=== PATIENT | female | born 1975 | race African-American/Black ===

== ENCOUNTER 2025-02-12 12:50 | Emergency (ER) | payer MEDICAID, OTHER ==
[~2025-02-12] VITALS: Ht 182.9 cm; Wt 104.5 kg
[2025-02-12 13:37] LABS: Hematocrit 36.2 % (36.0-46.0); Hemoglobin 11.9 g/dL (12.2-16.2); Mean Corpuscular Hemoglobin 27.5 pg (28.0-32.0); Mean Corpuscular Volume 83.6 fL (80.0-100.0); Nucleated Red Blood Cells % 0.0 %
--- NOTE | 2025-02-12 13:40 | DVH ---
INDICATION: cp TECHNIQUE: Frontal view of the chest. COMPARISON: None FINDINGS: . The heart and mediastinal contours are grossly unremarkable. There is no evidence of pleural disea se. The lungs are clear. The bony structures of the chest are intact without fracture. IMPRESSION: 1. No evidence of acute disease.
[2025-02-12 13:45] LABS: Chloride 106 mmol/L (98-107); Potassium 3.9 mmol/L (3.5-5.1); Sodium 142 mmol/L (136-145)
[2025-02-12 13:46] LABS: Anion Gap 5 (5-15); Carbon Dioxide 31 mmol/L (20-31)
[2025-02-12 13:47] LABS: Calcium 9.5 mg/dL (8.7-10.4)
[2025-02-12 13:51] LABS: BUN/Creatinine Ratio 9.5 (10.0-20.0)
[2025-02-12 13:54] LABS: Blood Urea Nitrogen 6 mg/dL (9-23)
[2025-02-12 13:59] LABS: Glucose 56 mg/dL (74-106)
[2025-02-12 18:10] VITALS: TEMP 97.9; O2SAT 98
--- NOTE | 2025-02-12 18:26 | ECG ---
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
[2025-02-12 18:30] VITALS: BP 140/93; PULSE 62; RESP 18
[2025-02-12] MEDS: MORPHINE SULFATE INJ 2 MG/ml SYRG ONE (18:30)
[2025-02-12] MEDS: ONDANSETRON HCL 4 MG/2 ML VIAL IV ONE (18:30)
[2025-02-12] MEDS: MORPHINE SULFATE 4 MG/ML SYR/VIAL IV ONE (18:31)
--- NOTE | 2025-02-13 11:13 | ED.PDOC ---
HPI Comments 49y F who presents to the ED via EMS for chief complaint of chest pain. Pt states she has been having chest pain since yesterday night PM. Pt states the pain is located across her chest, constant, non-radiating, with no noted exacerbating or relieving factors. EMS noted pt was given aspirin prior to ED arrival with minimal decrease in pain. Pt in the ED, otherwise denies any other symptoms. 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 Family History Family History: Reviewed,noncontributory to illness Social History Smoker: Non-Smoker Alcohol: Denies ETOH Use Drugs: Denies Drug Use Lives In: Home Constitutional: denies: chills, diaphoresis, fatigue, fever, malaise, sweats, weakness, others EENTM: denies: blurred vision, double vision, ear bleeding, ear discharge, ear drainage, ear pain, ear ringing, eye pain, eye redness, hearing loss, mouth pain, mouth swelling, nasal discharge, nose bleeding, nose congestion, nose pain, photophobia, tearing, throat pain, throat swelling, voice changes, others Respiratory: denies: cough, hemoptysis, orthopnea, SOB at rest, shortness of breath, SOB with excertion, stridor, wheezing, others Cardiovascular: reports: chest pain; denies: dizzy spells, diaphoresis, Dyspnea on exertion, edema, irregular heart beat, left arm pain, lightheadedness, palpitations, PND, syncope, others Gastrointestinal: denies: abdomen distended, abdominal pain, blood streaked bowels, constipated, diarrhea, dysphagia, difficulty swallowing, hematemesis, melena, nausea, poor appetite, poor fluid intake, rectal bleeding, rectal pain, vomiting, others Genitourinary: denies: abnormal vagina bleeding, burning, dyspareunia, dysuria, flank pain, frequency, hematuria, incontinence, pain, , vagina discharge, urgency, others Neurological: denies: dizziness, fainting, headache, left sided numbness, left sided weakness, numbness, paresthesia, pre-existing deficit, right sided numbness, right sided weakness, seizure, speech problems, tingling, tremors, weakness, others Musculoskeletal: denies: back pain, gout, joint pain, joint swelling, muscle pain, muscle stiffness, neck pain, others Integumetry: denies: bruises, change in color, change in hair/nails, dryness, laceration, lesions, lumps, rash, wounds, others Allergic/Immunocompromised: denies: Difficulty Healing, Frequent Infections, Hives, Itching, others Hematologic/Lymphatic: denies: anemia, blood clots, easy bleeding, easy bruising, swollen glands, others Endocrine: denies: excessive hunger, excessive sweating, excessive thirst, excessive urination, flushing, intolerance to cold, intolerance to heat, unexp lained weight gain, unexplained weight loss, others Psychiatric: denies: anxiety, bipolar disorder, depression, hopeless, panic disorder, schizophrenia, sleepless, suicidal, others All Other Systems: Reviewed and Negative Physical Exam General Appearance: No Apparent Distress, Normal HEENT: Normal ENT Inspection, Pharynx Normal, TMs Normal Neck: Full Range of Motion, Non-Tender, Normal, Normal Inspection Respiratory: Chest Non-Tender, Lungs Clear, No Accessory Muscle Use, No Respiratory Distress, Normal Breath Sounds Cardiovascular: No Edema, No JVD, No Murmur, No Gallop, Normal Peripheral Pulse s, Regular Rate/Rhythm Breast Exam: Deferred Gastrointestinal: No Organomegaly, Non Tender, No Pulsatile Mass, Normal Bowel Sounds, Soft Genitalia: Deferred Pelvic: Deferred Rectal: Deferred Extremities: No calf tenderness, Normal capillary refill, Normal inspection, Normal range of motion, Non-tender, No pedal edema Musculoskeletal : Apperance: Normal Neurologic: Alert, 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 Was a procedure done?: No CP Differential Dx Differential Diagnosis: Angina, Anxiety / Panic Attack, VA, PVC's, Sinus Tachycardia Differential Diagnosis: HTN Essential Differential Diagnosis: Angina, Chest Wall Pain, Costochondritis, Esophageal reflux/spasm X-Ray, Labs, Meds, VS Vital Signs Date Time Temp Pulse Resp B/P (MAP) Pulse Ox O2 Delivery O2 Flow Rate FiO2 02/12/25 18:30 62 18 140/93 02/12/25 18:10 97.9 62 18 140/93 (109) 98 97.9 02/12/25 16:02 61 17 116/78 (91) 100 02/12/25 15:57 67 02/12/25 13:52 59 02/12/25 13:13 98.4 64 16 149/95 99 98.4 02/12/25 12:51 63 Lab Test 02/12/25 16:24 02/12/25 14:25 02/12/25 13:23 Range/Units Troponin I High Sensitivity 82 *H 67 *H 60 *H </=34 ng/L White Blood Count 3.5 L 4.4-10.8 10^3/uL Red Blood Count 4.33 4.0-5.20 10^6/uL Hemoglobin 11.9 L 12.2-16.2 g/dL Hematocrit 36.2 36.0-46.0 % Mean Corpuscular Volume 83.6 80.0-100.0 fL Mean Corpuscular Hemoglobin 27.5 L 28.0-32.0 pg Mean Corpuscular Hemoglobin Concent 32.8 32.0-36.0 g/dL Red Cell Distribution Width 13.5 11.8-14.3 % Platelet Count 279 140-450 10^3/uL Mean Platelet Volume 8.0 6.9-10.8 fL Neutrophils (%) (Auto) 52.9 37.0-80.0 % Lymphocytes (%) (Auto) 35.6 10.0-50.0 % Monocytes (%) (Auto) 8.8 0.0-12.0 % Eosinophils (%) (Auto) 2.0 0.0-7.0 % Basophils (%) (Auto) 0.7 0.0-2.0 % Neutrophils # (Auto) 1.9 1.6-8.6 10 ^3/uL Lymphocytes # (Auto) 1.3 0.4-5.4 10 ^3/uL Monocytes # (Auto) 0.3 0-1.3 10 ^3/uL Eosinophils # (Auto) 0.1 0-0.8 10 ^3/uL Basophils # (Auto) 0 0-0.2 10 ^3/uL Nucleated Red Blood Cells 0.0 % Sodium Level 142 136-145 mmol/L Potassium Level 3.9 3.5-5.1 mmol/L Chloride Level 106 98-107 mmol/L Carbon Dioxide Level 31 20-31 mmol/L Anion Gap 5 5-15 Blood Urea Nitrogen 6 L 9-23 mg/dL Creatinine 0.63 0.550-1.02 mg/dL Glomerular Filtration Rate Calc 107 >90 mL/min BUN/Creatinine Ratio 9.5 L 10.0-20.0 Serum Glucose 56 L 74-106 mg/dL Calcium Level 9.5 8.7-10.4 mg/dL [place] [id number] Ph: [phone] DIAGNOSTIC IMAGING Diagnostic Imaging Report : [id number] Signed PATIENT: LEIDY DIALLO ACCT: [id number] UNIT: [id number] : 1975 LOC: ER ROOM / BED: / AGE / SEX: 49 / F ADM STATUS: REG ER SERVICE 1305 ORDERING PHYSICIAN: XIANG PULIDO MD PROCEDURE(s): CXRP - CHEST PORTABLE REASON: cp ORDER NUMBER(s): [id number], ACCESSION NUMBER(s): [id number] INDICATION: cp TECHNIQUE: Frontal view of the chest. COMPARISON: None FINDINGS: . The heart and mediastinal contours are grossly unremarkable. There is no evidence of pleural disease. The lungs are clear. The bony structures of the chest are intact without fracture. IMPRESSION: 1. No evidence of acute disease. ATED BY: CESAR DUMONT MD DICTATED DATE/TIME: 02/12/251337 SIGNED BY: CESAR DUMONT MD SIGNED DATE/TIME: 02/12/251337 CC: Time of 1ST Reevaluation: 13:40 Reevaluation 1ST: Unchanged Patient Education/Counseling: Diagnosis, Treatment Family Education/Counseling: No Family Present SEPSIS Sepsis Screen Physician Orders Urinalysis (02/12/25 13:05) Chest Portable (02/12/25 13:05) Electrocardigram (02/12/25 14:05) Electrocardigram (02/12/25 16:05) Vital Signs Date Time Temp Pulse Resp B/P (MAP) Pulse Ox O2 Delivery O2 Flow Rate FiO2 02/12/25 18:30 62 18 140/93 02/12/25 18:10 97.9 62 18 140/93 (109) 98 97.9 02/12/25 16:02 61 17 116/78 (91) 100 02/12/25 15:57 67 02/12/25 13:52 59 02/12/25 13:13 98.4 64 16 149/95 99 98.4 02/12/25 12:51 63 Laboratory Tests Test 02/12/25 13:23 White Blood Count 3.5 10^3/uL (4.4-10.8) L Departure 1 Departure Time of Disposition: 18:49 (Patient presented with chest pain that was concerning for possible STEMI, ACS, PE, Pneumonia, Muscle Strain, COPD, Dissect ion. Data: 1. I ordered and reviewed the result of at least 3 labs including a CBC, BMP, and Troponin. 2. I independently interpreted the following tests: EKG which shows sinus arrythmia and Chest X-ray which shows benign chest.Risk:This patient has a high risk of morbidity due to further diagnostic testing or treatment and may suffer from an acute cardiac or respiratory disorder. Workup reveals nstemi and patient should be admitted for further workup and possible expert consultation. ) Impression: Primary Impression: Acute chest pain Additional Impression: NSTEMI (non-ST elevated myocardial infarction) Disposition: 07 LEFT AWOL/ELOPED Condition: Serious Critical Care Note Critical Care Time?: Yes Critical care comment: NSTEMI Authorized and Performed by: Xiang Pulido MD Total critical care time: Approximately 37 minutes Due to a high probability of clinically significant, life threatening deterioration, the patient required my highest level of preparedness to intervene emergently and I personally spent this critical care time directly and personally managing the patient. This critical care time included obtaining a history; examining the patient; pulse oximetry; ordering and review of studies; arranging urgent treatment with development of a management plan; evaluation of patient's response to treatment; frequent reassessment; and, discussions with other providers. This critical care time was performed to assess and manage the high probability of imminent, life-threatening deterioration that could result in multi-organ failure. It was exclusive of separately billable procedures and treating other patients and teaching time. Please see my other sections and the rest of the note for further information on patient assessment and treatment. Stability Stability form required: No Heart Score Heart Score: Heart Score Response (Comments) Value History Slightly Suspicious 0 EKG Normal 0 Age <45 0 Risk Factors No known risk factors 0 Troponin 1-2 x's Normal limit 1 Total 1 I personally scribed for XIANG PULIDO MD ([email or web address]) on 02/12/25 at 13:10. Electronically submitted by Su Knott (NodeP[employer]). I personally scribed for IXANG PULIDO MD ([email or web address]) on 02/12/25 at 15:13. Electronically submitted by Su Knott (NodePing). I personally scribed for XIANG PULIDO MD (ELENA) on 02/12/25 at 16:13. Electronically submitted by Su Knott (NodePing). XIANG PULIDO MD Feb 12, 2025 13:10
--- NOTE | 2025-02-18 08:46 | ECG ---
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
--- NOTE | 2025-02-18 08:46 | ECG ---
[facility] Test Date: 2025-02-12 Test Time: 15:54:51 Pat Name: LEIDY DIALLO Department: Room: Gender: F Rn Ent: SEJAL : 1975 Requested By: XIANG KIM Order Number: [id number] Reading MD: Dereje Bynum Measurements Intervals [place] Rate: 67 P: 77 [place]: 208 QRS: 26 QRSD: 110 T: 45 QT: 386 QTc: 408 Interpretive Statements Sinus rhythm Borderline prolonged [place] interval RSR' in V1 or V2, right VCD or RVH Electronically Signed On 02-23-2025 10:03:29 PST by Dereje Bynum Please click the below link to view image of tracing.
== END 2025-02-12 19:02 | disposition left against medical advice (07) ==
LOC: ER 12:50 → EDBD 12:50 → ER 19:02
DX: I21.4 Non-ST elevation (NSTEMI) myocardial infarction (principal); R07.89 Other chest pain
CPT/HCPCS: 36415; 71045; 80048; 84484; 85025; 93005; 96374; 96375; 99291; J2270; J2405